=== PATIENT | female | born 1940 | race Caucasian/White ===

== ENCOUNTER → 2017-01-17 | Outpatient (CLI) | payer OTHER, BC | LOC: RAD 11:50 | DX: J45.909 Unspecified asthma, uncomplicated (principal) ==

== ENCOUNTER → 2018-05-17 | Outpatient (CLI) | payer OTHER, BC ==
[2018-05-17 08:44] LABS: CREATININE 0.8 mg/dL (0.6-1.0)
== END ==
LOC: CAT 08:07
PROVIDERS: Internal Medicine Pulmonary Disease
DX: N28.1 Cyst of kidney, acquired (principal); K44.9 Diaphragmatic hernia without obstruction or gangrene

== ENCOUNTER → 2018-11-12 | Outpatient (CLI) | payer OTHER, BC | LOC: ULTRA 12:36 | DX: M79.605 Pain in left leg (principal); M79.89 Other specified soft tissue disorders ==

== ENCOUNTER → 2019-11-05 | Outpatient (CLI) | payer OTHER, BC | LOC: RAD 12:16 | DX: M19.012 Primary osteoarthritis, left shoulder (principal); M19.011 Primary osteoarthritis, right shoulder; M25.812 Other specified joint disorders, left shoulder; M25.811 Other specified joint disorders, right shoulder; K44.9 Diaphragmatic hernia without obstruction or gangrene; C34.90 Malignant neoplasm of unspecified part of unspecified bronchus or lung; M25.712 Osteophyte, left shoulder; M25.711 Osteophyte, right shoulder ==

== ENCOUNTER → 2019-12-17 | Outpatient (CLI) | payer OTHER, BC | LOC: RAD 11:31 | DX: S13.140A Subluxation of C3/C4 cervical vertebrae, initial encounter (principal); M48.02 Spinal stenosis, cervical region; M47.812 Spondylosis without myelopathy or radiculopathy, cervical region; X58.XXXA Exposure to other specified factors, initial encounter; Y93.89 Activity, other specified; Y92.89 Other specified places as the place of occurrence of the external cause; Y99.8 Other external cause status ==

== ENCOUNTER → 2021-10-11 | Outpatient (CLI) | payer OTHER, BC | END | disposition home or self-care (01) | LOC: ULTRA 11:25 | PROVIDERS: ATTEND Internal Medicine | DX: M25.474 Effusion, right foot (principal); R60.1 Generalized edema ==